=== PATIENT | male | born 1995 ===

== ENCOUNTER → 2017-01-07 | Outpatient (REF) | payer OTHER ==
[2017-01-07 10:30] LABS: IMMOTILITY 91 %; NON PROGRESSIVE MOTILITY (c) 6 %; PROGRESSIVE MOTILITY (a) 9 % (>=32); TOTAL MOTILITY 15 % (>=40)
[2017-01-07 10:31] LABS: % NORMAL FORMS < 4 % (>=4); SPERM# 88.3 M/Ejac (33-46); TOTAL FUNCTIONAL 0.1 M/Ejac.; TOTAL PROGRESSIVE SPERM 2.2 M/Ejac.
== END ==
LOC: M LAB REF 09:47
PROVIDERS: ATTEND Obstetrics & Gynecology
DX: N46.8 Other male infertility (principal)

== ENCOUNTER → 2017-03-24 | Outpatient (REF) | payer OTHER ==
[2017-03-24 15:04] LABS: % NORMAL FORMS < 4 % (>=4); IMMOTILITY 75 %; NON PROGRESSIVE MOTILITY (c) 25 %; PROGRESSIVE MOTILITY (a) 0 % (>=32); TOTAL MOTILITY 25 % (>=40)
[2017-03-24 15:05] LABS: TOTAL PROGRESSIVE SPERM 0 M/Ejac.
== END ==
LOC: M LAB REF 14:56
PROVIDERS: ATTEND Obstetrics & Gynecology
DX: N46.8 Other male infertility (principal)

== ENCOUNTER → 2018-06-02 | Outpatient (REF) | payer OTHER ==
[2018-06-02 18:33] LABS: SEMEN APPEARANCE OPAQUE (OPAQUE); SEMEN VISCOSITY LIQUID (LIQUID); SPERM ABNORMAL FORMS WBC'S NOTED; WBC CONCENTRATION >1 M/ml (<=1 M/ml)
[2018-06-02 18:34] LABS: % NORMAL FORMS 6 % (>=4); IMMOTILITY 59 %; NON PROGRESSIVE MOTILITY (c) 13 %; PROGRESSIVE MOTILITY (a) 28 % (>=32); SPERM CONCENTRATION 22.2 M/ml (>=15.0); SPERM# 110.9 M/Ejac (>=39); TOTAL FUNCTIONAL 4.6 M/Ejac.; TOTAL MOTILITY 41 % (>=40); TOTAL PROGRESSIVE SPERM 31.4 M/Ejac.
== END ==
LOC: M LAB REF 15:36
DX: N46.9 Male infertility, unspecified (principal)